=== PATIENT | female | born 1945 | race African-American/Black ===

== ENCOUNTER 2017-08-02 18:29 | Emergency (ER) | payer MEDICARE ==
[~2017-08-02] VITALS: Ht 172.7 cm; Wt 90.7 kg
[2017-08-02 18:29] VITALS: BP_SYST 136
[2017-08-02] MEDS ORDERED: HYDROmorphone 1 MG INJ. 1 MG/ML AMPUL IVP ONE (19:45)
[2017-08-02 19:52] LABS: BASOPHILS % (AUTO) 0.2 % (0.0-2.0); EOSINOPHILS % (AUTO) 0.1 % (0.0-4.0); HEMATOCRIT 32.6 % (36-48); HEMOGLOBIN 10.9 g/dL (12.0-16.0); LYMPHOCYTES # (AUTO) 0.5 K/uL (1.0-5.5); LYMPHOCYTES % (AUTO) 3.4 % (20.5-51.5); MEAN CORPUSCULAR HEMOGLOBIN 27 pg (27-31); MEAN CORPUSCULAR HGB CONC 33 % (32-36); MEAN CORPUSCULAR VOLUME 82 fL (79.0-98.0); MONOCYTES # (AUTO) 0.6 K/uL (0.0-1.0); MONOCYTES % (AUTO) 3.7 % (1.7-9.3); NEUTROPHILS # (AUTO) 14.7 K/uL (1.8-7.7); NEUTROPHILS % (AUTO) 92.6 % (40.0-70.0); PLATELET COUNT (AUTO) 213 K/uL (130-430); RED BLOOD CELL COUNT(AUTO) 3.99 MIL/uL (4.2-6.2); RED CELL DISTRIBUTION WIDTH 12.7 % (9.0-15.0); WHITE BLOOD COUNT (AUTO) 15.8 K/uL (4.8-10.8)
[2017-08-02 20:05] LABS: INR 1.2 (0.8-1.2); PROTHROMBIN TIME 12.4 SECS (9.5-12.5)
[2017-08-02 20:08] LABS: ANION GAP 11 (5-15); CALCIUM 9.3 mg/dL (8.4-11.0); CHLORIDE 108 mmol/L (98-107); CREATININE 1.08 mg/dL (0.55-1.30); GLUCOSE 132 mg/dL (70-99); SODIUM SERUM 142 mmol/L (136-145); UREA NITROGEN, BLOOD 13 mg/dL (8-21)
[2017-08-02 20:16] LABS: POTASSIUM 2.9 mmol/L (3.5-5.1)
[2017-08-02 20:36] LABS: ALANINE AMINOTRANSFERASE 33 U/L (12-78); ALBUMIN 2.9 g/dL (3.4-4.8); ASPARTATE AMINOTRANSFERASE 28 U/L (10-37); TOTAL BILIRUBIN 1.5 mg/dL (0.0-1.0)
[2017-08-02] MEDS ORDERED: GABA-529 PO (21:11)
[2017-08-02] MEDS ORDERED: AMLO5TAB4 PO (21:11)
[2017-08-02] MEDS ORDERED: METO50TA7 PO (21:11)
[2017-08-02] MEDS ORDERED: POTASSIUM CHLORIDE 20 MEQ TAB.PRT.SR PO ONE (21:45)
[2017-08-02] MEDS ORDERED: fentaNYL CITRATE/PF 100 MCG/2 ML AMP IVP ONE (22:30)
[2017-08-02 22:36] LABS: BILIRUBIN,URINE NEGATIVE (NEGATIVE); BLOOD, URINE 3+ (NEGATIVE); CLARITY/URINE HAZY (CLEAR); COLOR,URINE YELLOW (YELLOW); GLUCOSE,URINE NEGATIVE (NEGATIVE); KETONES,URINE NEGATIVE (NEGATIVE); LEUKOCYTE ESTERASE ,URINE 3+ (NEGATIVE); NITRITE, URINE NEGATIVE (NEGATIVE); PH,URINE 5.5 (5.0-8.0); PROTEIN URINE 1+ (NEGATIVE)
[2017-08-02 22:49] LABS: BACTERIA,URINE MODERATE /HPF (None Seen); RBC,URINE 0-3 /HPF (0-3); WBC,URINE >100 /HPF (0-3)
[2017-08-02] MEDS ORDERED: LEVOFLOXACIN 500 MG/D5W 100 ML IV ONE (23:30)
[2017-08-02] MEDS ORDERED: NACL 0.9% 1,000 ML IV ONE (23:30)
[2017-08-03] MEDS ORDERED: fentaNYL CITRATE/PF 100 MCG/2 ML AMP IVP ONE (01:15)
[2017-08-03 01:48] VITALS: BP_SYST 127
== END 2017-08-03 01:48 | disposition short-term general hospital (02) ==
LOC: SED 18:29
DX: E87.6 Hypokalemia (principal); N39.0 Urinary tract infection, site not specified; I10 Essential (primary) hypertension
CPT/HCPCS: 36415; 71010; 71250; 80053; 81000; 83880; 84484; 85025; 85610; 85730; 86710; 87086; 87186; 93005; 96365; 96375; 96376; 99285; J1170; J1956; J3010 ×2; J7030

== ENCOUNTER 2018-12-17 19:27 | Emergency (ER) | payer MEDICARE ==
[~2018-12-17] VITALS: Ht 172.7 cm; Wt 59.0 kg
[~2018-12-17 19:27] MED LIST: AMLO5TAB4 PO; GABA-529 PO; METO50TA7 PO
[2018-12-17 19:33] VITALS: BP_SYST 127
[2018-12-17] MEDS ORDERED: NACL 0.9% 1,000 ML IV ONE (20:00)
[2018-12-17 20:31] LABS: HEMATOCRIT 32.9 % (36-48); HEMOGLOBIN 10.7 g/dL (12.0-16.0); MEAN CORPUSCULAR HEMOGLOBIN 29 pg (27-31); MEAN CORPUSCULAR HGB CONC 32 % (32-36); MEAN CORPUSCULAR VOLUME 88 fL (79.0-98.0); RED BLOOD CELL COUNT(AUTO) 3.74 MIL/uL (4.2-6.2); RED CELL DISTRIBUTION WIDTH 15.4 % (9.0-15.0)
[2018-12-17 20:34] LABS: ANION GAP 14 (5-15); CALCIUM 10.5 mg/dL (8.4-11.0); CHLORIDE 110 mmol/L (98-107); CREATININE 2.25 mg/dL (0.55-1.30); GLUCOSE 138 mg/dL (70-99); POTASSIUM 4.4 mmol/L (3.5-5.1); SODIUM SERUM 140 mmol/L (136-145); UREA NITROGEN, BLOOD 42 mg/dL (8-21)
[2018-12-17 20:36] LABS: PROTHROMBIN TIME 10.5 SECS (9.5-12.5)
[2018-12-17 20:37] LABS: PLATELET COUNT (AUTO) 19 K/uL (130-430); WHITE BLOOD COUNT (AUTO) 0.2 K/uL (4.8-10.8)
[2018-12-17 20:38] LABS: ALANINE AMINOTRANSFERASE 17 U/L (12-78); ALBUMIN 3.1 g/dL (3.4-4.8); ASPARTATE AMINOTRANSFERASE 17 U/L (10-37); TOTAL BILIRUBIN 1.3 mg/dL (0.0-1.0)
[2018-12-17] MEDS ORDERED: PIPERACILLIN/TAZO 3.375 GM in NS 50 ML IV ONE (21:00)
[2018-12-17] MEDS ORDERED: LEVOFLOXACIN 500 MG/D5W 100 ML IV ONE (21:00)
[2018-12-17] MEDS ORDERED: PIPERACILLIN/TAZOBACTAM 3.375 GM/VIAL (ZOSYN) IV ONE (21:15)
[2018-12-17 21:48] LABS: BILIRUBIN,URINE 2+ (NEGATIVE); BLOOD, URINE 1+ (NEGATIVE); CLARITY/URINE CLOUDY (CLEAR); COLOR,URINE YELLOW (YELLOW); GLUCOSE,URINE NEGATIVE (NEGATIVE); KETONES,URINE TRACE (NEGATIVE); LEUKOCYTE ESTERASE ,URINE NEGATIVE (NEGATIVE); NITRITE, URINE POSITIVE (NEGATIVE); PROTEIN URINE 2+ (NEGATIVE)
[2018-12-17 21:53] LABS: BACTERIA,URINE MODERATE /HPF (None Seen); FINE GRANULAR CASTS,URINE 0-10 /LPF (None Seen)
[2018-12-17 22:30] LABS: BAND % (MANUAL) 0 % (0-6); LYMPHOCYTES % (MANUAL) 89 % (20-46)
[2018-12-17] MEDS ORDERED: VANCOMYCIN HCL 1,000 MG in NS 250 ML IV ONE (22:30)
[2018-12-17] MEDS ORDERED: LIDOCAINE VISCOUS 2%, 15 ML UDC MM ONE (22:30)
[2018-12-17 22:32] LABS: BASOPHILS % (MANUAL) 0 % (0-2); EOSINOPHILS % (MANUAL) 0 % (0-7); MONOCYTES % (MANUAL) 8 % (0-11)
[2018-12-17] MEDS ORDERED: VANCOMYCIN HCL 1000 MG/VIAL IV ONE (22:32)
[2018-12-18 00:07] VITALS: BP_SYST 124
== END 2018-12-18 00:08 | disposition short-term general hospital (02) ==
LOC: SED 19:27
DX: R00.2 Palpitations (principal); J02.9 Acute pharyngitis, unspecified; R50.9 Fever, unspecified; I10 Essential (primary) hypertension; Z85.118 Personal history of other malignant neoplasm of bronchus and lung; Z79.899 Other long term (current) drug therapy
CPT/HCPCS: 36415; 71045; 80053; 81000; 83605; 84484; 85007; 85027; 85610; 85730; 86710; 87040; 87086; 87186; 93005; 96365; 96367; 96368; 99285; J1956; J2001; J2543; J3370; J7030

== ENCOUNTER 2018-12-24 17:55 | Emergency (ER) | payer MEDICARE ==
[~2018-12-24] VITALS: Ht 162.6 cm; Wt 54.4 kg
[2018-12-24 17:55] VITALS: BP_SYST 107
--- NOTE | 2018-12-24 17:55 | NUR ---
Patient to ER bed 1 to gown for evaluation. Side rails up. Report given to ZEENAT Arroyo.
--- NOTE | 2018-12-24 18:03 | NUR ---
ER Dr. lopez at bedside examining patient.
--- NOTE | 2018-12-24 18:05 | NUR ---
PATIENT IN BED COMPLAINING OF WEAKNESSM FOR 3 TO 4 DAYS. PATIENT NOT COMPLAINING OF PAIN, SHORTNESS OF BREATH, NAUSEA, OR VOMITING. PATIENT ALERT AND ORIENTED. GRADSON AT BEDSIDE. SOME WEAKNESS IN LEGS. GRANDJOVITA SAID SHE IS BED RIDDEN.
[2018-12-24] MEDS ORDERED: NS 500 ML IV ONE (18:15)
[2018-12-24] MEDS ORDERED: NACL 0.9% 2,000 ML IV ONE (18:15)
--- NOTE | 2018-12-24 18:25 | NUR ---
PATIENT GETTING X RAY IN BED
--- NOTE | 2018-12-24 18:42 | NUR ---
PATIENT GETTING LABS DRAWN
--- NOTE | 2018-12-24 19:14 | NUR ---
ENDORSED CARE TO NIGHT ZEENAT JOE
--- NOTE | 2018-12-24 19:25 | NUR ---
1924 - Received report from ZEENAT Arroyo. According to pt's grandson, pt was brought here last week for weakness, transferred to [place] (d/t insurance) and discharged from [facility] on Friday 12/22. Per grandson, pt was still weak on discharged, and has not walked on her own for over 1 week. Pt states her BP was low in [place], and has hx of HTN, but was not instructed to hold BP meds. Pt states she took BP meds this AM. Pt states continued weakness and that is why she is here again. Pt is A&Ox4. Grandson at bedside. Will attempt 2nd IV access w/ ultrasound. SBP is 88.
[2018-12-24 19:37] LABS: ANION GAP 17 (5-15); CALCIUM 11.3 mg/dL (8.4-11.0); CHLORIDE 117 mmol/L (98-107); CREATININE 3.97 mg/dL (0.55-1.30); GLUCOSE 119 mg/dL (70-99); POTASSIUM 3.3 mmol/L (3.5-5.1); SODIUM SERUM 149 mmol/L (136-145); UREA NITROGEN, BLOOD 67 mg/dL (8-21)
[2018-12-24 19:41] LABS: INR 1.1 (0.8-1.2); PROTHROMBIN TIME 11.3 SECS (9.5-12.5)
[2018-12-24 19:42] LABS: ALANINE AMINOTRANSFERASE 11 U/L (12-78); ALBUMIN 2.4 g/dL (3.4-4.8); ASPARTATE AMINOTRANSFERASE 9 U/L (10-37); TOTAL BILIRUBIN 1.4 mg/dL (0.0-1.0)
[2018-12-24 20:42] LABS: HEMATOCRIT 26.5 % (36-48); HEMOGLOBIN 8.6 g/dL (12.0-16.0); MEAN CORPUSCULAR HEMOGLOBIN 28 pg (27-31); MEAN CORPUSCULAR HGB CONC 32 % (32-36); MEAN CORPUSCULAR VOLUME 86 fL (79.0-98.0); RED BLOOD CELL COUNT(AUTO) 3.08 MIL/uL (4.2-6.2); WHITE BLOOD COUNT (AUTO) 0.7 K/uL (4.8-10.8)
[2018-12-24 20:43] LABS: PLATELET COUNT (AUTO) 13 K/uL (130-430); RED CELL DISTRIBUTION WIDTH 15.7 % (9.0-15.0)
--- NOTE | 2018-12-24 20:43 | NUR ---
2042 - Pt is normotensive at this time. Appears in no distress. IV fluids continue to infuse. Awaiting further lab results. Transfer to [facility] anticipated.
[2018-12-24 20:48] LABS: BAND % (MANUAL) 2 % (0-6); BASOPHILS % (MANUAL) 0 % (0-2); EOSINOPHILS % (MANUAL) 0 % (0-7); LYMPHOCYTES % (MANUAL) 94 % (20-46); MONOCYTES % (MANUAL) 4 % (0-11)
--- NOTE | 2018-12-24 21:46 | NUR ---
2146 - Lab at bedside, attempting venipuncture. BP 93/56. HR 104. Continues in no distress. No complaints at this time.
--- NOTE | 2018-12-24 22:33 | NUR ---
2233 - Pt given water, OK per Dr. Morton
--- NOTE | 2018-12-24 22:43 | NUR ---
2243 - [facility] Brady accepted pt.
[2018-12-24] MEDS ORDERED: NACL 0.9% 1,000 ML IV ONE (22:45)
[2018-12-24] MEDS ORDERED: cefTRIAXone 1 GM IVPB PREMIX 50 ML IV ONE (22:45)
--- NOTE | 2018-12-25 00:10 | NUR ---
0010 - IV access discontinued, no longer patent
--- NOTE | 2018-12-25 00:30 | NUR ---
0030 - ZEENAT Henry established 22g in right forearm.
--- NOTE | 2018-12-25 01:47 | NUR ---
0147 - Patient to be transferred to [facility]. Is being transferred due to higher level of care. Receiving facility has accepting physician and available space. ER physician has signed transfer form. Patient or responsible constitution party has agreed to transfer and signed form. Patient belongings inventoried and will be sent with patient. Copy of nursing notes, lab reports, EKG, Physicians Orders and X-rays to be sent with patient. Report called to ZEENAT Bernabe at receiving facility. Receiving physician is Dr. Parker. [facility] ambulance service has been called for transfer. ETA is 0145.
[2018-12-25 01:52] VITALS: BP_SYST 104
== END 2018-12-25 01:47 | disposition short-term general hospital (02) ==
LOC: SED 17:55
DX: E86.0 Dehydration (principal); D61.818 Other pancytopenia; I10 Essential (primary) hypertension; Z79.899 Other long term (current) drug therapy
CPT/HCPCS: 71045; 80053; 83605; 84484; 85610; 85730; 87040; 93005; 96361; 96365; 99285; J0696; J7030; J7040

== ENCOUNTER 2019-01-09 18:41 | Emergency (ER) | payer MEDICARE ==
[~2019-01-09] VITALS: Ht 154.9 cm; Wt 54.4 kg
[2019-01-09 18:42] VITALS: BP_SYST 124
[2019-01-09] MEDS ORDERED: NACL 0.9% 1,000 ML IV ONE (18:50)
[2019-01-09] MEDS ORDERED: NS 1000 ML IV.SOLN IV ONE (19:00)
[2019-01-09] MEDS ORDERED: cefTRIAXone 1 GM IVPB PREMIX 50 ML IV ONE (19:00)
[2019-01-09 19:37] LABS: HEMATOCRIT 22.8 % (36-48); HEMOGLOBIN 7.5 g/dL (12.0-16.0); RED BLOOD CELL COUNT(AUTO) 2.64 MIL/uL (4.2-6.2); WHITE BLOOD COUNT (AUTO) 8.4 K/uL (4.8-10.8)
[2019-01-09 19:38] LABS: BASOPHILS % (AUTO) 0.3 % (0.0-2.0); MEAN CORPUSCULAR HEMOGLOBIN 28 pg (27-31); MEAN CORPUSCULAR HGB CONC 33 % (32-36); MEAN CORPUSCULAR VOLUME 86 fL (79.0-98.0); MONOCYTES # (AUTO) 0.8 K/uL (0.0-1.0); MONOCYTES % (AUTO) 10.1 % (1.7-9.3); NEUTROPHILS # (AUTO) 6.5 K/uL (1.8-7.7); NEUTROPHILS % (AUTO) 77.6 % (40.0-70.0); PLATELET COUNT (AUTO) 261 K/uL (130-430); RED CELL DISTRIBUTION WIDTH 15.2 % (9.0-15.0)
[2019-01-09 19:42] LABS: ANION GAP 8 (5-15); CALCIUM 9.6 mg/dL (8.4-11.0); CHLORIDE 105 mmol/L (98-107); CREATININE 1.74 mg/dL (0.55-1.30); GLUCOSE 112 mg/dL (70-99); POTASSIUM 3.9 mmol/L (3.5-5.1); SODIUM SERUM 139 mmol/L (136-145); UREA NITROGEN, BLOOD 11 mg/dL (8-21)
[2019-01-09 19:46] LABS: INR 1.1 (0.8-1.2); PROTHROMBIN TIME 10.8 SECS (9.5-12.5)
[2019-01-09 19:47] LABS: ALANINE AMINOTRANSFERASE 21 U/L (12-78); AMYLASE 43 U/L (0-100); ASPARTATE AMINOTRANSFERASE 26 U/L (10-37); LIPASE 71 U/L (73-393); TOTAL BILIRUBIN 0.7 mg/dL (0.0-1.0)
[2019-01-10 04:30] VITALS: BP_SYST 110
== END 2019-01-10 04:30 | disposition home or self-care (01) ==
LOC: SED 18:41
DX: D64.9 Anemia, unspecified (principal); N17.9 Acute kidney failure, unspecified; C34.90 Malignant neoplasm of unspecified part of unspecified bronchus or lung; I10 Essential (primary) hypertension; Z79.899 Other long term (current) drug therapy
CPT/HCPCS: 36415; 36430; 70450; 71045; 80053; 82150; 82550; 83605; 83690; 84484; 85025; 85610; 85730; 86886; 86900; 86901; 86920; 87040; 93005; 99285; P9021; 99284

== ENCOUNTER 2019-01-23 09:50 | Emergency (ER) | payer MEDICARE ==
[~2019-01-23] VITALS: Ht 172.7 cm; Wt 59.0 kg
--- NOTE | 2019-01-23 09:55 | NUR ---
Arrived via [facility] ambulance with compliant of vomiting blood, and nose bleed. Placed in room 5. Placed on air sampling and monitoring, blood pressure machine and pulse oximeter. To gown for exam. Side rails up. Report given to Rachel EPPERSON.
--- NOTE | 2019-01-23 10:00 | NUR ---
PATIENT IN ER BED 5. PATIENT ACCOMPANIED BY PATIENT'S SON. PATIENT IS AAOX4. PATIENT IS VERBALLY RESPONSIVE. NO ACUTE SIGNS OF RESP DISTRESS, NO SOB. PATIENTS SON STATED "I BROUGHT HER IN BECAUSE SHE WAS COUGHING UP BLOOD AND SHES NEVER DONE THAT BEFORE". PATIENT HAS PAST MEDICAL HISTORY OF LUNG CANCER AND HTN. WILL CONTINUE TO MONITOR.
[2019-01-23 10:02] VITALS: BP_SYST 99
[2019-01-23] MEDS ORDERED: NACL 0.9% 1,000 ML IV ONE (10:08)
[2019-01-23] MEDS ORDERED: IPRATROPIUM BROM 0.5 MG/2.5 ML VIAL.NEB (ATROVENT) IH ONE ×2 (10:15→12:00)
[2019-01-23] MEDS ORDERED: MORPHINE 4 MG/ML INJ. SYRINGE IVP ONE (10:15)
[2019-01-23] MEDS ORDERED: ALBUTEROL SULFATE 0.083% 2.5 MG/3 ML VIAL.NEB IH ONE ×2 (10:15→12:00)
[2019-01-23 10:39] LABS: BASOPHILS # (AUTO) 0.1 K/uL (0.0-0.2); BASOPHILS % (AUTO) 0.4 % (0.0-2.0); EOSINOPHILS # (AUTO) 0.5 K/uL (0.0-0.4); EOSINOPHILS % (AUTO) 2.8 % (0.0-4.0); HEMATOCRIT 33.1 % (36-48); HEMOGLOBIN 10.6 g/dL (12.0-16.0); LYMPHOCYTES # (AUTO) 1.8 K/uL (1.0-5.5); MEAN CORPUSCULAR HEMOGLOBIN 28 pg (27-31); MEAN CORPUSCULAR HGB CONC 32 % (32-36); MEAN CORPUSCULAR VOLUME 87 fL (79.0-98.0); NEUTROPHILS # (AUTO) 13.6 K/uL (1.8-7.7); PLATELET COUNT (AUTO) 336 K/uL (130-430); RED BLOOD CELL COUNT(AUTO) 3.82 MIL/uL (4.2-6.2); RED CELL DISTRIBUTION WIDTH 16.1 % (9.0-15.0)
[2019-01-23 11:16] LABS: NEUTROPHILS % (AUTO) 75.8 % (40.0-70.0)
[2019-01-23 11:25] LABS: ANION GAP 11 (5-15); CALCIUM 10.4 mg/dL (8.4-11.0); CHLORIDE 107 mmol/L (98-107); CREATININE 2.05 mg/dL (0.55-1.30); GLUCOSE 114 mg/dL (70-99); POTASSIUM 4.8 mmol/L (3.5-5.1); SODIUM SERUM 141 mmol/L (136-145); UREA NITROGEN, BLOOD 20 mg/dL (8-21)
[2019-01-23 11:28] LABS: PROTHROMBIN TIME 10.7 SECS (9.5-12.5)
[2019-01-23 11:29] LABS: ALANINE AMINOTRANSFERASE 11 U/L (12-78); ALBUMIN 2.1 g/dL (3.4-4.8); AMYLASE 62 U/L (0-100); ASPARTATE AMINOTRANSFERASE 14 U/L (10-37); LIPASE 139 U/L (73-393); TOTAL BILIRUBIN 0.6 mg/dL (0.0-1.0)
--- NOTE | 2019-01-23 11:50 | NUR ---
Late entry IVF were discontinued at this time. Addendum: 02/16/19 at 1115 by [facility] IVF d/c's @[id number]
--- NOTE | 2019-01-23 13:24 | NUR ---
Patient given written and verbal discharge instructions and verbalizes understanding. ER MD Kline discussed with patient the results and treatment provided. Patient in stable condition. ID arm band removed. IV catheter removed intact and dressing applied, no active bleeding. Rx of Proventil, Zofran, Tylenol with Codeine given. Patient educated on pain management and to follow up with PMD. Pain Scale 0. Opportunity for questions provided and answered. Medication side effect fact sheet provided.
[2019-01-23 13:25] VITALS: BP_SYST 109
== END 2019-01-23 13:25 | disposition home or self-care (01) ==
LOC: SED 09:50
DX: R04.0 Epistaxis (principal); D72.829 Elevated white blood cell count, unspecified; D53.9 Nutritional anemia, unspecified; I10 Essential (primary) hypertension; Z85.118 Personal history of other malignant neoplasm of bronchus and lung; Z79.899 Other long term (current) drug therapy
CPT/HCPCS: 36415; 71045; 80053; 82150; 82550; 83605; 83690; 84484; 85025; 85610; 85730; 87040; 93005; 94640; 96361; 96374; 99284; J2270; J7030; J7613